=== PATIENT | male | born 1990 | race Caucasian/White ===

== ENCOUNTER 2024-03-20 11:05 | Outpatient (OUT) | payer OTHER, SELFPAY ==
[2024-03-20 11:48] LABS: Basophils Percent Auto 0.3 % (0.2-2.0); Eosinophils Absolute Auto 0.1 10^3/uL (0.0-0.7); Hemoglobin 14.6 g/dL (14.0-18.0); Immature Granulocytes Abs Auto 0.02 10^3/uL (0.00-0.03); Immature Granulocytes Pct Auto 0.7 % (0.0-0.5); Lymphocytes Absolute Auto 1.2 10^3/uL (1.2-3.8); Lymphocytes Percent Auto 40.7 % (20.5-60.0); Mean Corpuscular HGB Conc 32.4 g/dL (29.9-35.2); Mean Corpuscular Hemoglobin 31.8 pg (25.9-34.0); Monocytes Absolute Auto 0.3 10^3/uL (0.3-0.8); Monocytes Percent Auto 9.3 % (1.7-12.0); Neutrophils Absolute Auto 1.4 10^3/uL (1.4-6.5); Platelet Count 176 10^3/uL (150-450); Red Blood Count 4.59 10^6/uL (4.70-6.10)
[2024-03-21 06:09] LABS: HIV Ab/p24 Ag Screen Non Reactive (Non Reactive)
[2024-03-21 08:11] LABS: HCV Antibody Reactive (Non Reactive)
== END 2024-03-20 11:06 | disposition home or self-care (01) ==
PROVIDERS: PCP Family Medicine; Visit Provider Nurse Practitioner Primary Care
DX: K70.30 Alcoholic cirrhosis of liver without ascites (principal); R17 Unspecified jaundice
CPT/HCPCS: 36415; 80053; 85025; 86803; 87389